=== PATIENT | female | born 1985 | race American Indian/Alaskan Native ===

== ENCOUNTER 2017-10-29 11:43 | Observation (INO) | payer MEDICAID ==
[2017-10-29 11:43] VITALS: BMI 31.2
[2017-10-29] MEDS ORDERED: Sodium Chloride 0.9% 1,000 ML IV STA ×2 (12:23→14:34)
--- NOTE | 2017-10-29 12:28 | ED PDOC ---
Arrival/HPI - General Historian: Patient - History of Present Illness Time/Duration: 1 week Symptom Onset: Sudden Symptom Course: Unchanged Quality: Aching Severity Level: 4 Activities at Onset: Rest Context: Home <Mitra Richmond - Last Filed: 10/29/17 23:12> <KourtneyMaryanne - Last Filed: 10/31/17 10:36> - General Chief Complaint: Female Genitourinary Time Seen by Provider: 10/29/17 12:01 - History of Present Illness Narrative History of Present Illness (Text): 10/29/17 12:31 Pt is a 32 yr old female A1 with a h/o heart murmurs during who presents today complaining of nausea and vomiting since Tuesday followed by vaginal bleeding. Pt says she feels weak and is concerned that her period is lasting a lot longer than the typical 3 days. Says she took a home test that was positive and noticed that the bleeding became especially heavy and bright red. LMP was 09/26/17 and was noted as 'normal'. Pt reports an inability to eat or drink due to the vomiting but denies fever, chest pain, diarrhea, recent travel, trauma or any other complaints. (Mitra Richmond) Past Medical History - Provider Review Nursing Documentation Reviewed: Yes - Travel History Have you recently traveled outside [place] w/in the past 3 mons?: No - Past History Past History: Non-Contributing - Infectious Disease Hx of Infectious Diseases: None - Tetanus Immunization Tetanus Immunization: Unknown - Past Medical History Past Medical History: No Previous - Cardiac Hx Cardiac Disorders: Yes Other/Comment: HEART MURMUR - Pulmonary Hx Respiratory Disorders: No - Neurological Hx Neurological Disorder: No - HEENT Hx HEENT Disorder: No - Renal Hx Renal Disorder: No - Endocrine/Metabolic Hx Endocrine Disorders: No - Hematological/Oncological Hx Blood Disorders: No - Integumentary Hx Dermatological Disorder: No - Musculoskeletal/Rheumatological Hx Musculoskeletal Disorders: No - Gastrointestinal Hx Gastrointestinal Disorders: No - Genitourinary/Gynecological Hx Genitourinary Disorders: No - Psychiatric Hx Depression: No Hx Emotional Abuse: No Hx Physical Abuse: No Hx Substance Use: Yes (Marijuana) - Past Surgical History Past Surgical History: No Previous - Suicidal Assessment Feels Threatened In Home Enviroment: No <Mitra Richmond - Last Filed: 10/29/17 23:12> Family/Social History - Physician Review Nursing Documentation Reviewed: Yes Family/Social History: Unknown Family HX Smoking Status: Light Smoker < 10 Cigarettes Daily Hx Alcohol Use: No Hx Substance Use: Yes (Marijuana) Hx Substance Use Treatment: No <Mitra Richmond - Last Filed: 10/29/17 23:12> Allergies/Home Meds <Mitra Richmond - Last Filed: 10/29/17 23:12> <Maryanne Oconnell - Last Filed: 10/31/17 10:36> Allergies/Adverse Reactions: Allergies No Known Allergies Allergy (Verified 10/29/17 21:08) Review of Systems - Review of Systems Constitutional: Normal, Fatigue, Weight Change Eyes: Normal ENT: Normal Respiratory: Normal, SOB Cardiovascular: Normal, Chest Pain Gastrointestinal: Normal, Nausea, Vomiting, Appetite Changes Genitourinary Female: Normal, Vaginal Bleeding. absent: Dysuria, Frequency, Hematuria Musculoskeletal: Normal Skin: Normal Neurological: Normal Endocrine: Normal Hemo/Lymphatic: Normal Psychiatric: Normal <Mitra Richmond - Last Filed: 10/29/17 23:12> Physical Exam Vital Signs Reviewed: Yes Temperature: Afebrile Blood Pressure: Normal Pulse: Regular Respiratory Rate: Normal Appearance: Positive for: Well-Appearing, Non-Toxic, Comfortable Pain Distress: None Mental Status: Positive for: Alert and Oriented X 3 - Systems Exam Head: Present: Atraumatic, Normocephalic Pupils: Present: PERRL Extroacular Muscles: Present: EOMI Conjunctiva: Present: Normal Mouth: Present: Moist Mucous Membranes Neck: Present: Normal Range of Motion Respiratory/Chest: Present: Clear to Auscultation, Good Air Exchange. No: Respiratory Distress, Accessory Muscle Use Cardiovascular: Present: Regular Rate and Rhythm, Normal S1, S2, Irregular Rhythm. No: Murmurs Abdomen: Present: Normal Bowel Sounds. No: Tenderness, Distention, Peritoneal Signs Genitourinary/Pelvic Exam: Present: Normal External Genitalia, Vaginal Bleeding , Other (cervical os open x ~6-7mm). No: Vaginal Lesions, Adenexal Tenderness, Adenexal Mass, Cervical os Closed, Odor Back: Present: Normal Inspection Upper Extremity: Present: Normal Inspection. No: Cyanosis, Edema Lower Extremity: Present: Normal Inspection, Capillary Refill < 2 s. No: Edema Neurological: Present: GCS=15, CN II-XII Intact, Speech Normal Skin: Present: Warm, Dry, Normal Color. No: Rashes Psychiatric: Present: Alert, Oriented x 3, Normal Insight, Normal Concentration <Mitra Richmond - Last Filed: 10/29/17 23:12> Vital Signs Temp Pulse Resp BP Pulse Ox 10/29/17 15:43 64 18 111/64 100 10/29/17 14:00 61 18 109/65 100 10/29/17 12:05 98.6 F 65 18 107/63 100 10/29/17 11:53 98.6 F 65 17 107/63 100 Medical Decision Making - Lab Interpretations Interpretation: Abnormal lab values (Elevated WBC at 13.6, beta hcg 08851.00, CO2 16) <Mitra Richmond - Last Filed: 10/29/17 23:12> <Maryanne Oconnell - Last Filed: 10/31/17 10:36> ED Course and Treatment: 10/29/17 12:39 Impression Pt is a 32 yr old female A1 with a h/o heart murmurs during who presents today complaining of nausea and vomiting since Tuesday followed by vaginal bleeding. Pt is likely spontaneously aborting; transvaginal US ordered to ascertain status along with beta hcg Plan labs pelvic exam US fluids and zofran assess and dispo Progress Note 10/29/17 12:50 Pelvic exam performed with balance weigher (Christina) -cervical os open x ~6mm with small amount of blood at the opening 10/29/17 14:36 IMPRESSION: Single living intrauterine gestation with average ultrasound age = 6 weeks 0 days 0 weeks 3 days heart rate documented at 169 BPM VERONICA based on average ultrasound age 0206/24/2018. type and screen ordered 10/29/17 14:38 Pt remains cold despite warm blankets; continues to receive fluids 1L bolus discussed findings with her; informed of admission for observation; says she has contacted family Dr Oconnell assessed pt and spoke with hospitalist and residents for overnight obs in med/surg Pt states that she wishes to abort the fetus (Mitra Richmond) Patient on exam reports several day history of vomiting and shakes. She is afebrile in ED. No cva tenderness. Mild suprapubic pain. No cough or chest pain or shortness of breath. No hypoxia. Ultrasound reveals IUP. Patient with persistent vaginal bleeding although cv stable in ED. She has low co2, suspect component of dehydration, will admit for iv fluids, serial exams. (Maryanne Oconnell) - Lab Interpretations Lab Results: 10/29/17 12:05 10/29/17 12:05 Lab Results 10/29/17 12:05: Beta HCG, Quant 81912.00 H 10/29/17 12:05: Sodium 141, Potassium 3.8, Chloride 106, Carbon Dioxide 16 L, Anion Gap 23 H, BUN 8, Creatinine 0.6 L, Est GFR ( Amer) > 60, Est GFR ( Non-Af Amer) > 60, Random Glucose 86, Calcium 9.7, Total Bilirubin 0.6, AST 22, ALT 24, Alkaline Phosphatase 51, Total Protein 8.1, Albumin 4.6, Globulin 3.4, Albumin/Globulin Ratio 1.4 10/29/17 12:05: Urine Color Yellow, Urine Appearance Sl cloudy, Urine pH 6.0, Ur Specific [place] >= 1.030, Urine Protein 100 H, Urine Glucose (UA) Negative, Urine Ketones >=80, Urine Blood Large H, Urine Nitrate Negative, Urine Bilirubin Small H, Urine Urobilinogen 1.0 H, Ur Leukocyte Esterase Negative, Urine RBC 1 - 3, Urine WBC 1 - 3, Ur Epithelial Cells Many, Urine Bacteria Small 10/29/17 12:05: WBC 13.6 H D, RBC 4.28, Hgb 13.9, Hct 38.7, MCV 90.4, MCH 32.5, MCHC 35.9, RDW 11.9, Plt Count 248, MPV 9.4, Gran % 69.8 H, Lymph % (Auto) 20.3 L, [place] % (Auto) 3.6, Eos % (Auto) 5.9 H, Baso % (Auto) 0.4, Gran # 9.50 H, Lymph # (Auto) 2.8, [place] # (Auto) 0.5, Eos # (Auto) 0.8 H, Baso # (Auto) 0.06 - RAD Interpretation Narrative RAD Interpretations (Text): 10/29/17 14:36 pole: CRL = 0.2 cm = 5 weeks 5 days. Heart motion: 169 BPM Average ultrasound age = 6 weeks 0 days 0 weeks 3 days ENDOMETRIUM: NA CERVIX: No cervical abnormality identified. Cervix measures 3.5 cm. RIGHT OVARY: Measures 2.44 x 1.6 x 1.5 cm. No solid mass. Normal flow. LEFT OVARY: Measures 2.8 x 2.1 x 1.5 cm. No solid mass. Normal flow. FREE FLUID: No significant free fluid noted. OTHER FINDINGS: None. IMPRESSION: Single living intrauterine gestation with average ultrasound age = 6 weeks 0 days 0 weeks 3 days heart rate documented at 169 BPM VERONICA based on average ultrasound age 0206/24/2018. (Mitra Richmond) Radiology Orders: 10/29/17 12:22 OB TRANSVAGINAL [US] Stat - Medication Orders Current Medication Orders: Discontinued Medications Folic Acid (Folic Acid) 1 mg PO STAT STA Stop: 10/29/17 19:41 Last Admin: 10/29/17 19:57 Dose: 1 mg Sodium Chloride (Sodium Chloride 0.9%) 1,000 mls @ 999 mls/hr IV .Q1H1M STA Stop: 10/29/17 13:23 Last Admin: 10/29/17 12:40 Dose: 999 mls/hr eMAR Start Stop Document 10/29/17 12:40 SF (Rec: 10/29/17 12:56 SF [email or web address] Intravenous Solution Start Date 10/29/17 Start Time 12:40 End Date 10/29/17 End time 13:41 Total Infusion Time 61 Sodium Chloride (Sodium Chloride 0.9%) 1,000 mls @ 100 mls/hr IV .Q10H [facility] Last Admin: 10/29/17 15:08 Dose: 100 mls/hr eMAR Start Stop Document 10/29/17 15:08 SF (Rec: 10/29/17 15:08 SF [email or web address]) Intravenous Solution Start Date 10/29/17 Start Time 15:08 Sodium Chloride (Sodium Chloride 0.9%) 1,000 mls @ 999 mls/hr IV .Q1H1M STA Stop: 10/29/17 15:34 Last Admin: 10/29/17 15:00 Dose: 999 mls/hr eMAR Start Stop Document 10/29/17 15:00 SF (Rec: 10/29/17 15:08 SF [email or web address]) Intravenous Solution Start Date 10/29/17 Start Time 15:00 End Date 10/29/17 End time 16:01 Total Infusion Time 61 Sodium Chloride (Sodium Chloride 0.9%) 1,000 mls @ 200 mls/hr IV .Q5H [facility] Last Admin: 10/29/17 17:05 Dose: 200 mls/hr eMAR Start Stop Document 10/29/17 17:05 LMN (Rec: 10/29/17 18:17 LMN [id number]) Intravenous Solution Start Date 10/29/17 Start Time 17:05 Nitrofurantoin Macrocrystals (Macrobid) 100 mg PO STAT STA PRN Reason: Protocol Stop: 10/29/17 19:33 Last Admin: 10/29/17 19:58 Dose: 100 mg Ondansetron HCl (Zofran Inj) 4 mg IVP STAT STA Stop: 10/29/17 12:25 Last Admin: 10/29/17 13:00 Dose: 4 mg IVP Administration Document 10/29/17 13:00 SF (Rec: 10/29/17 13:00 [email or web address]) Charges for Administration # of IVP Administrations 1 Ondansetron HCl (Zofran Odt) 4 mg PO STAT STA Stop: 10/29/17 16:50 Last Admin: 10/29/17 18:00 Dose: 4 mg Potassium Chloride (K-Dur 20 Meq Er Tab) 40 meq PO ONCE ONE Stop: 10/29/17 19:40 Last Admin: 10/29/17 19:57 Dose: 40 meq Disposition/Present on Arrival - Present on Arrival Any Indicators Present on Arrival: Yes History of DVT/PE: No History of Uncontrolled Diabetes: No Urinary Catheter: No History of Decub. Ulcer: No History Surgical Site Infection Following: None - Disposition Have Diagnosis and Disposition been Completed?: Yes Disposition Time: 17:00 Patient Plan: Admission <Mitra Richmond - Last Filed: 10/29/17 23:12> - Present on Arrival Any Indicators Present on Arrival: No <Maryanne Oconnell - Last Filed: 10/31/17 10:36> - Disposition Diagnosis: Hyperemesis gravidarum, Threatened Disposition: HOSPITALIZED Condition: FAIR
[2017-10-29 12:49] LABS: BASO # 0.06 K/mm3 (0.0-2.0); BASO % 0.4 % (0.0-3.0); EOS # 0.8 (0.0-0.7); EOS % 5.9 % (1.5-5.0); GRAN # 9.5 (1.4-6.5); GRAN % 69.8 % (50.0-68.0); HEMOGLOBIN 13.9 g/dL (12.0-16.0); LYMPH # 2.8 (1.2-3.4); LYMPH % 20.3 % (22.0-35.0); MEAN CELL VOLUME 90.4 fl (80.0-105.0); MEAN CORPUSCULAR HEMOGLOBIN 32.5 pg (25.0-35.0); MEAN CORPUSCULAR HGB CONC 35.9 g/dl (31.0-37.0); MEAN PLATELET VOLUME 9.4 fl (7.0-11.0); MONO # 0.5 (0.1-0.6); MONO % 3.6 % (1.0-6.0); RBC 4.28 10^6/uL (3.5-6.1); RED CELL DISTRIBUTION WIDTH 11.9 % (11.5-14.5); WHITE BLOOD COUNT 13.6 10^3/ul (4.5-11.0)
[2017-10-29 12:50] LABS: URINE APPEARANCE SL CLOUDY (CLEAR); URINE BILIRUBIN SMALL (NEGATIVE); URINE BLOOD LARGE (NEGATIVE); URINE COLOR YELLOW (YELLOW); URINE GLUCOSE (UA) NEGATIVE (NEGATIVE); URINE LEUKOCYTE ESTERASE NEGATIVE Leu/uL (NEGATIVE); URINE PROTEIN 100 mg/dL (<30 mg/dL)
[2017-10-29 12:59] LABS: ALB/GLOB RATIO 1.4 (1.1-1.8); ALBUMIN 4.6 g/dL (3.0-4.8); ALT/SGPT 24 U/L (7-56); AST/SGOT 22 U/L (14-36); BLOOD UREA NITROGEN 8 mg/dL (7-21); CALCIUM 9.7 mg/dL (8.4-10.5); GFR AFRICAN-AMERICAN > 60; GFR NON-AFRICAN AMERICAN > 60; URINE BACTERIA SMALL (NEG); URINE EPITHELIAL CELLS MANY /hpf (0-5)
--- NOTE | 2017-10-29 14:16 | US ---
HISTORY: Menorrhagia and cramping. COMPARISON: Comparison made with prior study 03/05/2014. TECHNIQUE: Transabdominal/transvaginal sonographic evaluation of the pelvis. FINDINGS: UTERUS: Measures 6.3 x 3.8 x 3.9 cm. . There is a single living intrauterine gestation. Gestational sac: MSD = 1.83 cm = 6 weeks 2 days Yolk sac: 0.27 cm. pole: CRL = 0.2 cm = 5 weeks 5 days. Heart motion: 169 BPM Average ultrasound age = 6 weeks 0 days 0 weeks 3 days ENDOMETRIUM: NA CERVIX: No cervical abnormality identified. Cervix measures 3.5 cm. RIGHT OVARY: Measures 2.44 x 1.6 x 1.5 cm. No solid mass. Normal flow. LEFT OVARY: Measures 2.8 x 2.1 x 1.5 cm. No solid mass. Normal flow. FREE FLUID: No significant free fluid noted. OTHER FINDINGS: None. IMPRESSION: Single living intrauterine gestation with average ultrasound age = 6 weeks 0 days 0 weeks 3 days heart rate documented at 169 BPM VERONICA based on average ultrasound age 0206/24/2018.
[2017-10-29] MEDS ORDERED: Sodium Chloride 0.9% 1,000 ML IV SCH ×2 (14:30→16:51)
--- NOTE | 2017-10-29 17:30 | CP.PCM.HP ---
Addendum entered and electronically signed by Whit Goldman DO 10/29/17 22:27 : Addendum: Patient discharged after resolution of symptoms with oral zofran, as well as treatment of asymptomatic bacteruria, hypokalemia. Discussed case with MISAEL Dupree career technical education instructor, who recommends conservative management and outpatient follow up. Discussed risks and benefits with patient regarding , bacteruria, threatened/inevitable , and she verbalized understanding and agreement. Patient discharged to home Original Note: <Whit Goldman - Last Filed: 10/29/17 16:58> History of Present Illness - History of Present Illness History of Present Illness: Whit Goldman DO PGY1 - IM H&P for Dr. Muniz CC: Nausea, vomiting, vaginal bleeding HPI: 32 yo A1 female LMP 09/26/17 presents to the ER complaining of nausea, vomiting, and vaginal bleeding for the past 5 days. Vaginal bleeding started like a normal period (1 pad daily, not saturated) but 3 days ago, became heavier , requiring three tampon changes daily. Her nausea and vomiting started at the same time. Vomiting is nonbloody, nonbilious. She is unable to keep anything down for the past three days. She vomited once this morning, and 2-3 times daily for the prior 4 days. She has also had some mild abdominal pain, though currently not experiencing any. She denies diarrhea, constipation, fever, chills , sick contacts. She has not eaten anything strange or new recently. She has experienced similar symptoms before, with each . Upon informing her of her current , she reports that the is not desired, and that she intents to seek an . 12 point ROS was obtained and was negative except as above PMH: Denies PSH: Denies Home meds: None Soc: Current smoker 1/2 ppd; Drinks socially 1-2 drinks weekly; denies illicits All: NKDA Present on Admission - Present on Admission Any Indicators Present on Admission: No Past Patient History - Infectious Disease Hx of Infectious Diseases: None - Tetanus Immunizations Tetanus Immunization: Unknown - Past Medical History & Family History Past Medical History?: Yes - Past Social History Smoking Status: Light Smoker < 10 Cigarettes Daily - CARDIAC Hx Cardiac Disorders: Yes Other/Comment: HEART MURMUR - PULMONARY Hx Respiratory Disorders: No - NEUROLOGICAL Hx Neurological Disorder: No - HEENT Hx HEENT Problems: No - RENAL Hx Chronic Kidney Disease: No - ENDOCRINE/METABOLIC Hx Endocrine Disorders: No - HEMATOLOGICAL/ONCOLOGICAL Hx Blood Disorders: No - INTEGUMENTARY Hx Dermatological Problems: No - MUSCULOSKELETAL/RHEUMATOLOGICAL Hx Musculoskeletal Disorders: No - GASTROINTESTINAL Hx Gastrointestinal Disorders: No - GENITOURINARY/GYNECOLOGICAL Hx Genitourinary Disorders: No - PSYCHIATRIC Hx Depression: No Hx Emotional Abuse: No Hx Physical Abuse: No Hx Substance Use: Yes (Marijuana) - SURGICAL HISTORY Hx Surgeries: No Meds Home Medications: Home Medication List Medication Instructions Recorded Confirmed Type Nitrofurantoin Macrocrystals 100 mg PO Q12 #10 cap 10/29/17 Rx [Macrobid] Nitrofurantoin Macrocrystals 100 mg PO Q12 #6 cap 10/29/17 Rx [Macrobid] Ondansetron ODT [Zofran ODT] 4 mg PO Q4H PRN #12 odt 10/29/17 Rx Allergies/Adverse Reactions: Allergies Allergy/AdvReac Type Severity Reaction Status Date / Time No Known Allergies Allergy Verified 10/29/17 21:08 Physical Exam - Constitutional Appears: Non-toxic, In Acute Distress (mild) - Head Exam Head Exam: ATRAUMATIC, NORMOCEPHALIC - Eye Exam Eye Exam: EOMI, Normal appearance - ENT Exam ENT Exam: Mucous Membranes Dry - Respiratory Exam Respiratory Exam: Clear to Auscultation Bilateral, NORMAL BREATHING PATTERN - Cardiovascular Exam Cardiovascular Exam: RRR, +S1, +S2. absent: Tachycardia - GI/Abdominal Exam GI & Abdominal Exam: Soft. absent: Distended, Firm, Guarding, Tenderness - Extremities Exam Extremities exam: Negative for: calf tenderness, pedal edema - Neurological Exam Neurological exam: Alert, Oriented x3 - Psychiatric Exam Psychiatric exam: Normal Affect, Normal Mood - Skin Skin Exam: Dry, Intact Results - Vital Signs Recent Vital Signs: Last Vital Signs Temp 98.6 F 10/29/17 12:05 Pulse 66 10/29/17 16:44 Resp 17 10/29/17 16:44 BP 111/72 10/29/17 16:44 Pulse Ox 99 10/29/17 16:44 - Labs Result Diagrams: 10/29/17 12:05 10/29/17 12:05 Assessment & Plan - Assessment and Plan (Free Text) Assessment: 32 yo F A1 with approximately 6w gestation, presents with nausea, vomiting, abdominal pain, and vaginal bleeding for the past 5 days; noted to have intrauterine gestation approximately 6w gestational age based on ultrasound; also with mild metabolic acidosis based on low bicarbonate level Nausea and vomiting with dehydration and low bicarbonate - Concerning for hyperemesis gravidarum - Patient recieved 1L NS bolus in the ER - Repeat 1L NS bolus followed by maintenance at 200cc/hr - Nausea improved dramatically with Zofran - Continue PRN zofran - Recheck BMP after hydration Intrauterine gestation - Viable vs threatened vs inevitable - Per ER note, cervical OS is open 6-7mm - Start Folic acid and multivitamin - Consider TRANSCRIPTION TYPIST consultation if symptoms do not improve with conservative management, otherwise, patient can follow up with JE[facility] of her choice as outpatient Bacteruria - Initial UA showed bacteruria, but likely contaminated - Repeat clean-catch UA DVT Ppx: SCDs Patient seen and case discussed with attending Dr. Muniz <Bella Muniz - Last Filed: 10/30/17 13:26> Results - Vital Signs Recent Vital Signs: Last Vital Signs Temp 97.6 F 10/29/17 16:55 Pulse 58 L 10/29/17 16:55 Resp 16 10/29/17 16:55 BP 105/63 10/29/17 16:55 Pulse Ox 100 10/29/17 16:55 - Labs Result Diagrams: 10/29/17 12:05 10/29/17 18:45 Labs: Laboratory Results - last 24 hr 10/29/17 10/29/17 10/29/17 16:35 16:35 18:10 Sodium Potassium Chloride Carbon Dioxide Anion Gap BUN Creatinine Est GFR ( Amer) Est GFR (Non-Af Amer) Random Glucose Calcium Urine Color Yellow Urine Appearance Sl cloudy Urine pH 6.0 Ur Specific [place] 1.025 Urine Protein Trace H Urine Glucose (UA) Negative Urine Ketones >=80 Urine Blood Moderate H Urine Nitrate Negative Urine Bilirubin Negative Urine Urobilinogen 0.2 Ur Leukocyte Esterase Negative Urine RBC 5 - 10 Urine WBC 2 - 5 Ur Epithelial Cells 4 - 5 Urine Bacteria Few Influenza Typ A,B (EIA) Negative for flu a/b Blood Type B POSITIVE Antibody Screen Negative BBK History Checked Patient has bt 10/29/17 18:45 Sodium 139 Potassium 3.4 L Chloride 109 H Carbon Dioxide 17 L Anion Gap 17 BUN 6 L Creatinine 0.6 L Est GFR ( Amer) > 60 Est GFR (Non-Af Amer) > 60 Random Glucose 97 Calcium 8.4 Urine Color Urine Appearance Urine pH Ur Specific [place] Urine Protein Urine Glucose (UA) Urine Ketones Urine Blood Urine Nitrate Urine Bilirubin Urine Urobilinogen Ur Leukocyte Esterase Urine RBC Urine WBC Ur Epithelial Cells Urine Bacteria Influenza Typ A,B (EIA) Blood Type Antibody Screen BBK History Checked Attending/Attestation - Attestation I have personally seen and examined this patient.: Yes I have fully participated in the care of the patient.: Yes I have reviewed all pertinent clinical information: Yes Notes (Text): 10/29/17 32 year old female, A1 with approximately 6 weeks of gestation who presented with complaint of nausea and vomiting. Ultrasound showed 6 weeks intrauterine gestation of approximately 6 weeks. She was given IVF and zofran. Her symptoms improved. Case was discussed with learn to swim instructor who recommended to discharge home with outpatient follow up. Potassium was repleted prior to discharge. She was started on antibiotic for possible UTI. Bella Muniz MD Hospitalist.
[2017-10-29 18:16] VITALS: BP 105/63; PULSE 58; RESP 16; TEMP 97.6; O2SAT 100
[2017-10-29 18:25] LABS: URINE APPEARANCE SL CLOUDY (CLEAR); URINE BILIRUBIN NEGATIVE (NEGATIVE); URINE BLOOD MODERATE (NEGATIVE); URINE COLOR YELLOW (YELLOW); URINE GLUCOSE (UA) NEGATIVE (NEGATIVE); URINE LEUKOCYTE ESTERASE NEGATIVE Leu/uL (NEGATIVE); URINE PROTEIN TRACE mg/dL (<30 mg/dL); URINE UROBILINOGEN 0.2 E.U./dL (<1 E.U./dL)
[2017-10-29 18:29] LABS: URINE BACTERIA FEW (NEG)
[2017-10-29 19:04] LABS: BLOOD UREA NITROGEN 6 mg/dL (7-21); CALCIUM 8.4 mg/dL (8.4-10.5); GFR AFRICAN-AMERICAN > 60; GFR NON-AFRICAN AMERICAN > 60
[2017-10-29] MEDS ORDERED: Potassium Chloride 20 mEq ER Tab PO ONE (19:39)
[2017-10-30] MEDS ORDERED: Pantoprazole 40 mg EC Tab PO SCH (06:00)
--- NOTE | 2017-10-30 13:47 | CARD ---
APPROVED REPORT EKG Measurement Heart [id number] VT 134P [id number] <Conclusion> Sinus bradycardia with sinus arrhythmia Otherwise normal ECG
== END 2017-10-29 21:44 | disposition home or self-care (01) ==
LOC: ED 11:43 → ERH 14:47 → 5RSO 16:52
PROVIDERS: ADMIT Internal Medicine; ATTEND Internal Medicine
DX: O21.1 Hyperemesis gravidarum with metabolic disturbance (principal); E86.0 Dehydration; O46.90 Antepartum hemorrhage, unspecified, unspecified trimester; O99.331 Smoking (tobacco) complicating pregnancy, first trimester; Z3A.01 Less than 8 weeks gestation of pregnancy; R82.71 Bacteriuria
CPT/HCPCS: 76817; 80053; 81001; 84702; 85025; 86850; 86900; 87804; 93005; 96361; 96374; 99285; G0378; J2405; J7030